=== PATIENT | male | born 1940 | race Caucasian/White ===

== ENCOUNTER 2017-10-31 06:54 | Day surgery (SDC) | payer OTHER, BC ==
[2017-10-31 07:54] VITALS: BP 109/60; PULSE 94; TEMP 97.8
[2017-10-31 08:06] VITALS: BMI 38.4
--- NOTE | 2017-10-31 08:47 | PN ---
Progress Note (short form) - Note Progress Note: Zeferino Lawrence arrived for colonoscopy for polyp surveillance. He had a queasy stomach and nausea that he attributed to the prep. He denies chest pain or dyspnea. He was found to be in new onset atrial fibrillation at 90bpm. PE BP P irregular at 90 bpm,, BP 133/82 Anicteric. Alert Lungs: clear Cor irregularly irregular, Nl S1, S2 Abd: BS normoactive, nontende Impression: New onset atrial fibrillation Plan: Colonoscopy is cancelled Transfer to ER - discussed with Dr Guero Moon was notified and saw the patient and contacted Dr Ky Juarez
--- NOTE | 2017-10-31 13:13 | EKG ---
Test Reason : Blood Pressure : / mmHG Vent. Rate : 089 BPM Atrial Rate : 092 BPM P-R Int : 000 ms QRS Dur : 094 ms QT Int : 400 ms P-R-T Axes : 000 129 -27 degrees QTc Int : 486 ms ATRIAL FIBRILLATION LOW VOLTAGE QRS LEFT POSTERIOR FASCICULAR BLOCK INFERIOR INFARCT (CITED ON OR BEFORE 02-SEP-2013) ABNORMAL ECG WHEN COMPARED WITH ECG OF 02-SEP-2013 11:05, ATRIAL FIBRILLATION HAS REPLACED SINUS RHYTHM VENT. RATE HAS INCREASED BY 31 BPM LEFT POSTERIOR FASCICULAR BLOCK IS NOW PRESENT Confirmed by MCKENNA CELESTIN MD ([id number]) on 10/31/2017 1:12:53 PM Referred By: MARK DEVINE Confirmed By:MCKENNA CELESTIN MD
== END 2017-10-31 08:30 | disposition home or self-care (01) ==
LOC: JASU-ENDO 06:54
PROVIDERS: ATTEND Internal Medicine Gastroenterology
PROC: 0DJD8ZZ Inspection of Lower Intestinal Tract, Via Natural or Artificial Opening Endoscopic (ICD-10-PCS; principal; 2017-10-31)
DX: Z53.8 Procedure and treatment not carried out for other reasons (principal)
CPT/HCPCS: 93005; 93010

== ENCOUNTER 2017-10-31 09:06 | Emergency (ER) | payer OTHER, BC ==
[2017-10-31 09:16] VITALS: TEMP 98; BMI 37.5
--- NOTE | 2017-10-31 09:25 | PDOC ---
History of Present Illness <Guero Reyna - Last Filed: 10/31/17 12:04> - General History Source: Patient Exam Limitations: No Limitations <Sheldon Devi - Last Filed: 10/31/17 12:13> - General Chief Complaint: Weakness Stated Complaint: EKG CHANGES Time Seen by Provider: 10/31/17 09:24 - History of Present Illness Initial Comments: 10/31/17 10:09 The patient is a 77 year old male, with a significant past medical history of hypertension, hypercholesterolemia, and enlarged prostate, who presents to the emergency department for evaluation of an irregular heartbeat. Patient reports he was being seen earlier this morning here at [facility] for a colonoscopy when the doctor advised he had an irregular heartbeat. The patient reports nausea without vomiting and lightheadedness following bowel prep for the colonoscopy. Patient denies chest pain, chest discomfort, palpitations or shortness of breath. Patient denies recent swelling or calf tenderness. Patient denies recent fever, chills, headache or blurry vision. Allergies: NKA Primary Care Physician: Dr. Moon Paper Making Machine Operator: Dr. Juarez (Sheldon Devi) Past History - Past Medical History Cardiac Disorders: Yes (cad;) COPD: No GI Disorders: Yes (GERD) Disorders: Yes (BPH) HTN: Yes Hypercholesterolemia: Yes - Surgical History Orthopedic Surgery: Yes (carpal tunnel rotator cuff) - Suicide/Smoking/Psychosocial Hx Smoking History: Never smoked Have you smoked in the past 12 months: No Hx Alcohol Use: Yes (occas) Drug/Substance Use Hx: No Substance Use Type: Alcohol <Guero Reyna - Last Filed: 10/31/17 12:04> <Sheldon Devi - Last Filed: 10/31/17 12:13> - Past Medical History Allergies/Adverse Reactions: Allergies Allergy/AdvReac Type Severity Reaction Status Date / Time No Known Drug Allergies Allergy Unknown Verified 10/31/17 09:14 Home Medications: Ambulatory Orders Allopurinol [Zyloprim -] 100 mg PO DAILY #0 tablet 09/03/13 Atorvastatin Ca [Lipitor] 40 mg PO HS #0 tablet 09/03/13 Dutasteride [Avodart] 0.5 mg PO HS #0 cap 09/03/13 Metoprolol Succinate [Toprol XL -] 25 mg PO DAILY #0 tab.sr.24h 09/03/13 Olmesartan Medoxomil [Benicar -] 20 mg PO HS #0 tablet 09/03/13 Amlodipine Besylate [Norvasc -] 5 mg PO DAILY 07/16/15 Aspirin Coated [Ecotrin -] 81 mg PO DAILY 07/16/15 Cholecalciferol (Vitamin D3) [Vitamin D3] 2,000 unit PO DAILY 07/16/15 Naproxen [Naprosyn -] 250 mg PO PRN PRN 07/16/15 [place]-3 Acid Ethyl Esters [Lovaza -] 1,000 mg PO DAILY 07/16/15 Ranitidine [Zantac -] 150 mg PO DAILY 07/16/15 Zolpidem Tartrate [Ambien] 5 mg PO PRN PRN 07/16/15 Apixaban [Eliquis -] 5 mg PO BID #30 tablet 10/31/17 Review of Systems <Guero Reyna - Last Filed: 10/31/17 12:04> <Sheldon Devi - Last Filed: 10/31/17 12:13> - Review of Systems Comments:: 10/31/17 10:09 CONSTITUTIONAL: No fever, no chills EYES: No visual changes ENT: No ear pain, no sore throat CARDIOVASCULAR: No chest pain, no palpitations RESPIRATORY: No cough, no SOB GI: +Nausea. No abdominal pain, no vomiting, no constipation, no diarrhea GENITOURINARY: No dysuria, no frequency, no hematuria MUSKULOSKELETAL: No backpain, no joint pain, no myalgias SKIN: No rash NEURO: No headache (Sheldon Devi) *Physical Exam <Guero Reyna - Last Filed: 10/31/17 12:04> <Sheldon Devi - Last Filed: 10/31/17 12:13> - Vital Signs Last Vital Signs Temp Pulse Resp BP Pulse Ox 98 F 79 20 102/72 96 10/31/17 09:14 10/31/17 11:33 10/31/17 10:10 10/31/17 11:33 10/31/17 10:10 - Physical Exam Comments: 10/31/17 10:10 CONSTITUTIONAL: Well-appearing; well-nourished; in no apparent distress HEAD: Normocephalic; atraumatic EYES: PERRL; EOM intact ENMT: External appears normal; normal oropharynx NECK: Supple; non-tender; no cervical lymphadenopathy CARD: +Irregularly irregular. No murmurs, rubs, or gallops RESP: Normal chest excursion with respiration; breath sounds clear and equal bilaterally; no wheezes, rhonchi, or rales ABD: Soft, non-distended; non-tender; no palpable organomegaly, no palpable hernias EXT: Normal ROM in all four extremities; non-tender to palpation; distal pulses intact SKIN: Warm, dry, no rash NEURO: No focal neurological deficiencies. (Sheldon Devi) ED Treatment Course - LABORATORY CBC & Chemistry Diagram: 10/31/17 10:00 10/31/17 10:00 <Guero Reyna - Last Filed: 10/31/17 12:04> - LABORATORY CBC & Chemistry Diagram: 10/31/17 10:00 10/31/17 10:00 <Sheldon Devi - Last Filed: 10/31/17 12:13> - ADDITIONAL ORDERS Additional order review: Laboratory Results 10/31/17 10/31/17 10:00 10:00 PT with INR 11.30 INR 1.00 Sodium 141 Potassium 3.9 Chloride 104 Carbon Dioxide 23 Anion Gap 14 BUN 18 Creatinine 1.3 D Creat Clearance w eGFR 53.53 Random Glucose 137 H D Calcium 9.6 Magnesium 2.0 D Total Bilirubin 1.2 H AST 18 D ALT 30 D Alkaline Phosphatase 72 Creatine Kinase 43 Troponin I 0.10 H D Total Protein 6.6 Albumin 3.8 10/31/17 10:00 RBC 5.16 MCV 93.9 MCHC 32.8 RDW 14.2 MPV 7.9 Neutrophils % 74.7 Lymphocytes % 16.8 D Monocytes % 7.0 Eosinophils % 0.8 Basophils % 0.7 - RADIOLOGY Radiograph Interpretation: 10/31/17 10:15 EXAM#: TYPE/EXAM: RESULT: [id number] RAD/CHEST X-RAY PORTABLE* Atrial fibrillation. Single AP portable chest x-ray. Shallow inspiration. The heart is borderline enlarged. Uncoiled thoracic aorta. The lungs are well aerated. No evidence of CHF, pneumonia, atelectasis. No large pleural effusion, or pneumothorax is seen. Intact visualized osseous structures. Impression. No evidence of active pulmonary disease. Reported By: Werner Burnett MD (Sheldon Devi) Medical Decision Making <Guero Reyna - Last Filed: 10/31/17 12:04> <Sheldon Devi - Last Filed: 10/31/17 12:13> - Medical Decision Making 10/31/17 12:04 Patient is a well-appearing 77-year-old male with multiple comorbidities who presented to the ER from the endoscopy suite for new onset atrial fibrillation with controlled ventricular rate after undergoing bowel prep one day previously. In the ER, patient is awake and alert, initially hypotensive, and clinically orthostatic, likely related to the hypokalemia and fluid shifts induced by the bowel prep. CBC reveals minimal leukocytosis of 14 with a normal differential, CMP reveals no evidence of significant electrolyte abnormalities. EKG reveals mild rightward axis shift but no evidence of acute ischemia. Patient was seen and evaluated by Dr. justin of cardiology. Patient's chads 2 vascular score is noted to be 3 which requires oral anticoagulation. While in the ED, patient is received 1 L of normal saline with resolution of his hypotension and resolution of clinical orthostatics. Patient is able to ambulate without difficulty and tolerates by mouth. Will discharge with all requests with cardiology follow-up in 48 hours. (Guero Reyna) 10/31/17 10:[address] Dr[address] Juarez at 9:57 am. Engineering Illustrator notified that Dr. Justin is covering and currently in [facility]. Case discussed with Dr. Justin. Page sent to Dr. Moon at 11:19. Page returned immediately. (Sheldon Devi) *DC/Admit/Observation/Transfer <Guero Reyna - Last Filed: 10/31/17 12:04> <Sheldon Devi - Last Filed: 10/31/17 12:13> Diagnosis at time of Disposition: Atrial fibrillation Qualifiers: Atrial fibrillation type: paroxysmal Qualified Code(s): I48.0 - Paroxysmal atrial fibrillation - Discharge Dispostion Disposition: HOME Condition at time of disposition: Stable - Prescriptions Prescriptions: Apixaban [Eliquis -] 5 mg PO BID #30 tablet - Referrals Referrals: Waldemar Moon MD [Primary Care Provider] - Meg Juarez MD [Staff Physician] - - Patient Instructions Printed Discharge Instructions: Atrial Fibrillation - Attestations Scribe Attestion: 10/31/17 10:11 Documentation prepared by Sheldon Devi, acting as medical research associate for Guero Reyna MD. (Sheldon Devi) Physician Attestion: 10/31/17 12:04 The documentation was prepared by the scribe under my direct supervision. I have reviewed the documentation which correctly represents the findings, medical decision-making and critical action taken by me. (Guero Reyna)
[2017-10-31 10:16] LABS: BASO % 0.7 % (0-2.0); EOS % 0.8 % (0-4.5); HEMATOCRIT 48.5 % (35.4-49); HEMOGLOBIN 15.9 GM/dL (11.7-16.9); LYMPH % 16.8 % (8-40); MCH 30.7 pg (25.7-33.7); MCHC 32.8 g/dl (32.0-35.9); MEAN CELL VOLUME 93.9 fl (80-96); MEAN PLT VOLUME 7.9 fl (7.5-11.1); NEUT % 74.7 % (42.8-82.8); PLATELET COUNT 235 K/MM3 (134-434); RBC 5.16 M/mm3 (4.00-5.60); RDW 14.2 % (11.9-15.9); WHITE BLOOD COUNT 14.4 K/mm3 (4.0-10.0)
[2017-10-31 10:48] LABS: ALBUMIN 3.8 g/dl (3.4-5.0); ANION GAP 14 (8-16); BILIRUBIN,TOTAL 1.2 mg/dL (0.2-1.0); BLOOD UREA NITROGEN 18 mg/dL (7-18); CALCIUM 9.6 mg/dL (8.5-10.1); CHLORIDE 104 mmol/L (98-107); CO2 23 mmol/L (21-32); CREATININE 1.3 mg/dL (0.7-1.3); GLUCOSE,RANDOM 137 mg/dL (74-106); POTASSIUM 3.9 mmol/L (3.5-5.1); SGOT/AST 18 U/L (15-37); SGPT/ALT 30 U/L (12-78); SODIUM 141 mmol/L (136-145); TOT PROT 6.6 g/dl (6.4-8.2)
[2017-10-31 10:51] LABS: ALK PHOS 72 U/L (45-117)
[2017-10-31 10:53] LABS: PROTHROMBIN TIME (PATIENT) 11.3 SEC (9.98-11.88)
--- NOTE | 2017-10-31 10:53 | CON.CARD ---
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 Patient reports he was being seen earlier this morning here at [facility] for a colonoscopy when he was found to be in newly diagnosed atrial fibrillation. The patient reports nausea without vomiting and lightheadedness following bowel prep for the colonoscopy with mild hypotension amenable to IVF. Patient denies chest pain, palpitations, shortness of breath, syncope, orthopnea , PND or LE edema. Allergies: NKA Primary Care Physician: Dr. Moon Pipe And Test Supervisor: Dr. Juarez - History Source History Provided By: Patient Limitations to Obtaining History: No Limitations - Alcohol/Substance Use Hx Alcohol Use: Yes (occas) - Smoking History Smoking history: Never smoked Have you smoked in the past 12 months: No Home Medications - Allergies Allergies/Adverse Reactions: Allergies Allergy/AdvReac Type Severity Reaction Status Date / Time No Known Drug Allergies Allergy Unknown Verified 10/31/17 09:14 - Home Medications Home Medications: Ambulatory Orders Allopurinol [Zyloprim -] 100 mg PO DAILY #0 tablet 09/03/13 Atorvastatin Ca [Lipitor] 40 mg PO HS #0 tablet 09/03/13 Dutasteride [Avodart] 0.5 mg PO HS #0 cap 09/03/13 Metoprolol Succinate [Toprol XL -] 25 mg PO DAILY #0 tab.sr.24h 09/03/13 Olmesartan Medoxomil [Benicar -] 20 mg PO HS #0 tablet 09/03/13 Amlodipine Besylate [Norvasc -] 5 mg PO DAILY 07/16/15 Aspirin Coated [Ecotrin -] 81 mg PO DAILY 07/16/15 Cholecalciferol (Vitamin D3) [Vitamin D3] 2,000 unit PO DAILY 07/16/15 Naproxen [Naprosyn -] 250 mg PO PRN PRN 07/16/15 [place]-3 Acid Ethyl Esters [Lovaza -] 1,000 mg PO DAILY 09/18/15 Ranitidine [Zantac -] 150 mg PO DAILY 07/16/15 Zolpidem Tartrate [Ambien] 5 mg PO PRN PRN 07/16/15 Review of Systems - Review of Systems Neurological: reports: Dizziness - Risk Factors Known Risk Factors: Yes: Age, Hypercholesterolemia, Hypertension Vital Signs: Vital Signs Temperature 98 F 10/31/17 09:14 Pulse Rate 84 10/31/17 10:10 Respiratory Rate 20 10/31/17 10:10 Blood Pressure 93/47 10/31/17 10:10 O2 Sat by Pulse Oximetry (%) 96 10/31/17 10:10 Constitutional: Yes: No Distress, Calm Neck: Yes: Supple Respiratory: Yes: Regular, Diminished Gastrointestinal: Yes: Normal Bowel Sounds, Soft, Abdomen, Obese Cardiovascular: Yes: Pulse Irregular JVD: No Carotid Bruit: No Heart Sounds: Yes: S1, S2 Edema: No - Other Data Labs, Other Data: CBC, BMP 10/31/17 10:00 Afib @ 89 low volts, compared with previous 03/15/2017, now in afib Imaging - Results Chest X-ray: Report Reviewed (10/31/17 10:15 EXAM#: TYPE/EXAM: RESULT: [id number] RAD/CHEST X-RAY PORTABLE* Atrial fibrillation. Single AP portable chest x-ray. Shallow inspiration. The heart is borderline enlarged. Uncoiled thoracic aorta. The lungs are well aerated. No evidence of CHF, pneumonia, atelectasis. No large pleural effusion, or pneumothorax is seen. Intact visualized osseous structures. Impression. No evidence of active pulmonary disease. Reported By: Werner Burnett MD) Problem List - Problems (1) Atrial fibrillation Code(s): I48.91 - UNSPECIFIED ATRIAL FIBRILLATION Qualifiers: Atrial fibrillation type: paroxysmal Qualified Code(s): I48.0 - Paroxysmal atrial fibrillation (2) Hypertensive cardiomyopathy Code(s): I11.9 - HYPERTENSIVE HEART DISEASE WITHOUT HEART FAILURE; I43 - CARDIOMYOPATHY IN DISEASES CLASSIFIED ELSEWHERE Qualifiers: Heart failure presence: without heart failure Qualified Code(s): I11.9 - Hypertensive heart disease without heart failure; I43 - Cardiomyopathy in diseases classified elsewhere; I43 - Cardiomyopathy in diseases classified elsewhere; I43 - Cardiomyopathy in diseases classified elsewhere; I43 - Cardiomyopathy in diseases classified elsewhere (3) Hyperlipidemia Code(s): E78.5 - HYPERLIPIDEMIA, UNSPECIFIED Qualifiers: Hyperlipidemia type: pure hypercholesterolemia Qualified Code(s): E78.00 - Pure hypercholesterolemia, unspecified; E78.0 - Pure hypercholesterolemia (4) Coronary artery disease Code(s): I25.10 - ATHSCL HEART DISEASE OF [place] CORONARY ARTERY W/O ANG PCTRS Qualifiers: Coronary Disease-Associated Artery/Lesion type: [place] artery [place] vs. transplanted heart: [place] heart Associated angina: without angina Qualified Code(s): I25.10 - Atherosclerotic heart disease of [place] coronary artery without angina pectoris (5) Demand ischemia Code(s): I24.8 - OTHER FORMS OF ACUTE ISCHEMIC HEART DISEASE (6) Diastolic dysfunction Code(s): I51.9 - HEART DISEASE, UNSPECIFIED (7) Hyperuricemia Code(s): E79.0 - HYPERURICEMIA W/O SIGNS OF INFLAM ARTHRIT AND TOPHACEOUS DIS Assessment/Plan 08/25/2016 Echo: 08/25/2016 cLVH with preserved LV systolic function, mild LAE 4.1 cm 1. Newly-diagnosed rate-controlled atrial fibrillation [id number], likely vagally-mediated post colonoscopy prep 2. 1 vessel CAD, demand ischemia 3. LV diastolic dysfunction with h/o failure 4. HTN/HCVD 5. Hyperlipidemia 6. 4.0 cm TAA as of 09/12/2016 7. OSAS suspect 8. Hyperuricemia P:1. Check TSH, repeat echo as outpatient 2. Change ASA 81 qd to Eliquis 5 bid given elevated risk score 3. Continue Lipitor 40 qhs, Toprol XL 25 qd, Benicar 20 qhs, Norvasc 5 qd, Lovaza 1 gm bid 4. Patient to f/u with Dr. Juarez 11/02/2017 at 12:20 PM 5. PSG as outpatient to r/o OSAS 6. Thank you for consultative opportunity
[2017-10-31] MEDS ORDERED: APIXABAN 5 MG TABLET PO SCH (11:30)
[2017-10-31 11:33] VITALS: BP 102/72; PULSE 79
== END 2017-10-31 12:13 | disposition home or self-care (01) ==
LOC: JER 09:06
DX: I48.0 Paroxysmal atrial fibrillation (principal); I10 Essential (primary) hypertension; E78.00 Pure hypercholesterolemia, unspecified; N40.0 Benign prostatic hyperplasia without lower urinary tract symptoms; I25.10 Atherosclerotic heart disease of native coronary artery without angina pectoris
CPT/HCPCS: 36415; 71045-TC-FY; 80053; 82550; 83735; 84484; 85025; 85610; 93005; 93010; 99285-25

== ENCOUNTER 2018-03-17 22:18 | Emergency (ER) | payer OTHER, BC ==
[2018-03-17 22:27] VITALS: TEMP 98.1; BMI 36.0
[2018-03-17 22:33] VITALS: BP 150/83; PULSE 95
[2018-03-17] MEDS ORDERED: LIDOCAINE HCL 2% (50ML VIAL) INF ONE (22:35)
[2018-03-17] MEDS ORDERED: LIDOCAINE HCL 2% (20ML MULTI-DOSE VIAL) NR ONE (22:36)
[2018-03-17] MEDS ORDERED: ACETAMINOPHEN 325 MG TABLET (FP) PO ONE (22:37)
[2018-03-17] MEDS ORDERED: ACETAMINOPHEN 325 MG TABLET (FP) ONE (22:38)
[2018-03-17] MEDS ORDERED: AMPICILLIN NA/SULBACTAM NA 1.5 GM in SODIUM CHLORIDE 100 ML IVPB ONE (22:48)
--- NOTE | 2018-03-17 22:51 | PDOC ---
History of Present Illness - General Chief Complaint: Pain, Acute Stated Complaint: SWELLING PAIN TO RIGHT RING FINGER Time Seen by Provider: 03/17/18 22:25 History Source: Patient, Significant Other Exam Limitations: No Limitations - History of Present Illness Timing/Duration: 1 week Severity: moderate Modifying Factors: worse with: cold therapy, eating, immobilization, medication , movement, rest, other Associated Symptoms: denies: denies symptoms, chest pain, cough, diaphoresis, fever/chills, headaches, loss of appetite, malaise, nausea/vomiting, rash, seizure, shortness of breath, syncope, weakness, other Past History - Travel Traveled outside of the country in the last 30 days: No Close contact w/someone who was outside of country & ill: No - Past Medical History Allergies/Adverse Reactions: Allergies Allergy/AdvReac Type Severity Reaction Status Date / Time No Known Drug Allergies Allergy Unknown Verified 03/17/18 22:19 Home Medications: Ambulatory Orders Allopurinol [Zyloprim -] 100 mg PO DAILY #0 tablet 09/03/13 Atorvastatin Ca [Lipitor] 40 mg PO HS #0 tablet 09/03/13 Dutasteride [Avodart] 0.5 mg PO HS #0 cap 09/03/13 Metoprolol Succinate [Toprol XL -] 25 mg PO DAILY #0 tab.sr.24h 09/03/13 Olmesartan Medoxomil [Benicar -] 20 mg PO HS #0 tablet 09/03/13 Amlodipine Besylate [Norvasc -] 5 mg PO DAILY 07/16/15 Aspirin Coated [Ecotrin -] 81 mg PO DAILY 07/16/15 Cholecalciferol (Vitamin D3) [Vitamin D3] 2,000 unit PO DAILY 07/16/15 Naproxen [Naprosyn -] 250 mg PO PRN PRN 07/16/15 [place]-3 Acid Ethyl Esters [Lovaza -] 1,000 mg PO DAILY 07/16/15 Ranitidine [Zantac -] 150 mg PO DAILY 07/16/15 Zolpidem Tartrate [Ambien] 5 mg PO PRN PRN 07/16/15 Apixaban [Eliquis -] 5 mg PO BID #30 tablet 10/31/17 Amoxicillin/Potassium Clav [Augmentin 875-125 Tablet] 1 each PO BID #14 tablet 03/17/18 Cardiac Disorders: Yes (cad;) COPD: No GI Disorders: Yes (GERD) Disorders: Yes (BPH) HTN: Yes Hypercholesterolemia: Yes - Surgical History Orthopedic Surgery: Yes (carpal tunnel rotator cuff) - Suicide/Smoking/Psychosocial Hx Smoking History: Never smoked Have you smoked in the past 12 months: No Information on smoking cessation initiated: No Hx Alcohol Use: No Drug/Substance Use Hx: No Substance Use Type: Alcohol Review of Systems - Review of Systems Constitutional: No: Symptoms Reported, See HPI, Chills, Diaphoresis, Fever, Loss of Appetite, Malaise, Night Sweats, Weakness, Weight Stable, Unintentional Wgt. Loss, Unexplained wgt Loss, Other HEENTM: No: Symptoms Reported, See HPI, Eye Pain, Blurred Vision, Tearing, Recent change in vision, Double Vision, Cataracts, Ear Pain, Ocular Prothesis, Ear Discharge, Nose Pain, Nose Congestion, Tinnitus, Nose Bleeding, Hearing Loss , Throat Pain, Throat Swelling, Mouth Pain, Dental Problems, Difficulty Swallowing, Mouth Swelling, Other Respiratory: No: Symptoms reported, See HPI, Cough, Orthopnea, Shortness of Breath, SOB with Exertion, SOB at Rest, Stridor, Wheezing, Productive cough, Hemoptysis, Other Cardiac (ROS): No: Symptoms Reported, See HPI, Chest Pain, Edema, Irregular Heart Rate, Lightheadedness, Palpitations, Syncope, Chest Tightness, Other ABD/GI: No: Symptoms Reported, See HPI, Abdominal Distended, Abd. Pain w/ defecation, Blood Streaked Bowels, Constipated, Diarrhea, Difficulty Swallowing , Nausea, Poor Appetite, Poor Fluid Intake, Rectal Bleeding, Vomiting, Indigestion, Abdominal cramping, Tarry Stools, Other : No: Symptoms Reported, See HPI, Burning, Dysuria, Discharge, Frequency, Flank Pain, Hematuria, Incontinence, Pain, Urgency, Testicular Mass, Testicular Swelling, Lesions, Testicular Pain, Other Musculoskeletal: No: Symptoms Reported, See HPI, Back Pain, Gout, Joint Pain, Joint Swelling, Muscle Pain, Muscle Weakness, Neck Pain, Joint Stiffness, Other Integumentary: No: Symptoms Reported, See HPI, Bruising, Change in Color, Change in Hair/Nails, Dryness, Erythema, Flushing, Lesions, Lumps, Pallor, Pruritus, Rash, Sweating, Other Neurological: No: Symptoms reported, See HPI, Headache, Numbness, Paresthesia, Pre-Existing Deficit, Seizure, Tingling, Tremors, Weakness, Unsteady Gait, Ataxia, Dizziness, Other Psychiatric: No: Anxiety, Depression, Frequent Crying, Stressors, Sleep Pattern Change, Emotional Problems, Mood Swings, Change in Appetite, Other *Physical Exam - Vital Signs Last Vital Signs Temp Pulse Resp BP Pulse Ox 98.1 F 95 H 16 150/83 99 03/17/18 22:22 03/17/18 22:31 03/17/18 22:31 03/17/18 22:31 03/17/18 22:31 - Physical Exam General Appearance: Yes: Nourished, Appropriately Dressed HEENT: positive: EOMI, RHONDA, Normal ENT Inspection Neck: positive: Trachea midline, Normal Thyroid Respiratory/Chest: positive: Chest Tender, Lungs Clear, Normal Breath Sounds Cardiovascular: positive: Regular Rhythm, Regular Rate, S1, S2 Gastrointestinal/Abdominal: positive: Normal Bowel Sounds, Flat Musculoskeletal: positive: Normal Inspection Extremity: positive: Normal Capillary Refill, Normal Inspection, Inflammation, Other (paronychia on the right 4th finger) Integumentary: positive: Normal Color, Dry, Warm Neurologic: positive: Fully Oriented, Alert, Normal Mood/Affect Procedures - Incision and Drainage I&D Site: Right: Other (finger paronychia) Betadine cleansed: Yes Anesthesia: 2% Lidocaine Volume(ml): 3 Blade Size: zev scissor from the sterile suture kit Plain Packing: No Complications: none Dressing: Yes *DC/Admit/Observation/Transfer Diagnosis at time of Disposition: Paronychia of finger of right hand - Discharge Dispostion Disposition: HOME Condition at time of disposition: Improved Decision to Admit order: No - Prescriptions Prescriptions: Amoxicillin/Potassium Clav [Augmentin 875-125 Tablet] 1 each PO BID #14 tablet - Referrals Referrals: Waldemar Moon MD [Staff Physician] - - Patient Instructions Printed Discharge Instructions: DI for Paronychia, DI for Wound Infection - Post Discharge Activity
[2018-03-17] MEDS ORDERED: AMPICILLIN NA/SULBACTAM NA 1.5 GM VIAL ONE (22:56)
[2018-03-17] MEDS ORDERED: BACITRACIN 15 GM TUBE TOPICAL OINTMENT TP ONE (23:28)
== END 2018-03-18 00:05 | disposition home or self-care (01) ==
LOC: FER 22:18
PROC: 0H9FXZZ Drainage of Right Hand Skin, External Approach (ICD-10-PCS; principal; 2018-03-17)
PROC: 3E03329 Introduction of Other Anti-infective into Peripheral Vein, Percutaneous Approach (ICD-10-PCS; 2018-03-17)
DX: L03.011 Cellulitis of right finger (principal); K21.9 Gastro-esophageal reflux disease without esophagitis; N40.0 Benign prostatic hyperplasia without lower urinary tract symptoms; I10 Essential (primary) hypertension; E78.00 Pure hypercholesterolemia, unspecified
CPT/HCPCS: 87070; 87076; 87186; 87205; 99281-25

== ENCOUNTER 2019-07-05 13:40 | Emergency (ER) | payer OTHER, BC ==
[2019-07-05 14:11] VITALS: BP 115/70; PULSE 56; TEMP 98.1; BMI 35.9
[2019-07-05 15:42] LABS: BASO % 1.1 % (0-2.0); EOS % 4.1 % (0-4.5); HEMATOCRIT 48.3 % (35.4-49); HEMOGLOBIN 16.1 GM/dl (11.7-16.9); LYMPH % 19.7 % (8-40); MCH 32.5 pg (25.7-33.7); MCHC 33.3 g/dl (32.0-35.9); MEAN CELL VOLUME 97.7 fl (80-96); MEAN PLT VOLUME 8.8 fl (7.5-11.1); MONO % 6.5 % (3.8-10.2); NEUT % 68.6 % (42.8-82.8); PLATELET COUNT 150 K/MM3 (134-434); RBC 4.94 M/mm3 (4.00-5.60); RDW 14.5 % (11.9-15.9); WHITE BLOOD COUNT 8.4 K/mm3 (4.0-10.8)
--- NOTE | 2019-07-05 15:54 | PDOC ---
Documentation entered by Nancy Mike SCRIBE, acting as scribe for Janeth Calderon MD. Janeth Calderon MD: This documentation has been prepared by the arianeibeRashid Lincy, SCRIBE, under my direction and personally reviewed by me in its entirety. I confirm that the documentation accurately reflects all work, treatment, procedures, and medical decision making performed by me. History of Present Illness - General Chief Complaint: Eye Problem Stated Complaint: RIGHT EYELID BRUISE History Source: Patient Exam Limitations: No Limitations - History of Present Illness Initial Comments: 07/05/19 15:00 The patient is a 78-year-old male with a past medical history significant for HTN, CAD, and HLD who presents to the emergency department with right lower eyelid bruising since this morning. The patient denies noticing the bruising when she woke up today. The patient reports after showering, he was shaving his face when he noticed bruising to the right lower eyelid. The patient denies pain but reports slight pressure to the area. The patient reports daily use of Xarelto. Denies trauma, injury, or falls. Denies numbness, tingling, facial drooping. Allergies: NKDA PCP: Dr. Moon Cardiology: Dr. Juarez Past History - Past Medical History Allergies/Adverse Reactions: Allergies Allergy/AdvReac Type Severity Reaction Status Date / Time No Known Drug Allergies Allergy Unknown Verified 03/17/18 22:19 Home Medications: Ambulatory Orders Allopurinol [Zyloprim -] 100 mg PO DAILY #0 tablet 09/03/13 Atorvastatin Ca [Lipitor] 40 mg PO HS #0 tablet 09/03/13 Dutasteride [Avodart] 0.5 mg PO HS #0 cap 09/03/13 Cholecalciferol (Vitamin D3) [Vitamin D3] 2,000 unit PO DAILY 07/16/15 Naproxen [Naprosyn -] 250 mg PO PRN PRN 07/16/15 Tully-3 Acid Ethyl Esters [Lovaza -] 1,000 mg PO HS 07/16/15 Ranitidine [Zantac -] 150 mg PO DAILY 07/16/15 Zolpidem Tartrate [Ambien] 5 mg PO PRN PRN 07/16/15 Empagliflozin [Jardiance] 25 mg PO DAILY 07/05/19 Losartan Potassium [Cozaar] 25 mg PO DAILY 07/05/19 Nebivolol HCl [Bystolic] 10 mg PO HS 07/05/19 Pantoprazole Sodium [Protonix] 40 mg PO HS 07/05/19 Rivaroxaban [Xarelto -] 20 mg PO HS 07/05/19 Cardiac Disorders: Yes (CAD, A-FIB) COPD: No Diabetes: Yes GI Disorders: Yes (GERD) Disorders: Yes (BPH) HTN: Yes Hypercholesterolemia: Yes - Surgical History Orthopedic Surgery: Yes (carpal tunnel rotator cuff) - Suicide/Smoking/Psychosocial Hx Smoking History: Never smoked Have you smoked in the past 12 months: No Hx Alcohol Use: No Drug/Substance Use Hx: No Substance Use Type: Alcohol Review of Systems - Review of Systems Able to Perform ROS?: Yes Comments:: 07/05/19 15:03 GENERAL/CONSTITUTIONAL: No fever or chills. No weakness. HEAD, EYES, EARS, NOSE AND THROAT: +right eyelid bruising. No change in vision. No ear pain or discharge. No sore throat. CARDIOVASCULAR: No chest pain or shortness of breath. RESPIRATORY: No cough, wheezing, or hemoptysis SKIN: No rash NEUROLOGIC: Denies facial drooping, numbness or tingling. No headache, vertigo, loss of consciousness, or change in strength/sensation. HEMATOLOGIC/LYMPHATIC: No anemia, easy bleeding, or history of blood clots. *Physical Exam - Vital Signs Last Vital Signs Temp Pulse Resp BP Pulse Ox 98.1 F 56 L 16 115/70 97 07/05/19 13:49 07/05/19 13:49 07/05/19 13:49 07/05/19 13:49 07/05/19 13:49 - Physical Exam Comments: 07/05/19 15:33 GENERAL: Awake, alert, and fully oriented, in no acute distress HEAD: No signs of trauma EYES: +small ecchymosis under the eyes, no deformities. PERRLA, EOMI, sclera anicteric, conjunctiva clear NECK: Normal ROM, supple, no lymphadenopathy, JVD, or masses LUNGS: Breath sounds equal, clear to auscultation bilaterally. No wheezes, and no crackles HEART: Regular rate and rhythm, normal S1 and S2, no murmurs, rubs or gallops NEUROLOGICAL: Cranial nerves II through XII grossly intact. Normal speech, normal gait ED Treatment Course - LABORATORY CBC & Chemistry Diagram: 07/05/19 15:20 - ADDITIONAL ORDERS Additional order review: Laboratory Results 07/05/19 15:20 PTT (Actin FS) Cancelled 07/05/19 15:20 RBC 4.94 MCV 97.7 H MCHC 33.3 RDW 14.5 MPV 8.8 Neutrophils % 68.6 Lymphocytes % 19.7 Monocytes % 6.5 Eosinophils % 4.1 Basophils % 1.1 *DC/Admit/Observation/Transfer Diagnosis at time of Disposition: Contusion of face Qualifiers: Encounter type: initial encounter Qualified Code(s): S00.83XA - Contusion of other part of head, initial encounter - Discharge Dispostion Disposition: HOME Condition at time of disposition: Good Decision to Admit order: No - Referrals Referrals: Waldemar Moon MD [Primary Care Provider] - - Patient Instructions Printed Discharge Instructions: DI for Eye Contusion Additional Instructions: you came to the ED because you had a contusion on your eye. This was most likely caused by the xarelto. You should return to the Ed for worsening swelling, or for bleeding from your nose, rectal bleeding, or bleeding in the urine. Also return for severe eye swelling or for changes in your vision. Continue to take the xarelto. Make sure you follow up with your doctor. - Post Discharge Activity
== END 2019-07-05 16:05 | disposition home or self-care (01) ==
LOC: FER 13:40
DX: S00.83XA Contusion of other part of head, initial encounter (principal); X58.XXXA Exposure to other specified factors, initial encounter; Y93.89 Activity, other specified; Y92.89 Other specified places as the place of occurrence of the external cause; I10 Essential (primary) hypertension; I48.91 Unspecified atrial fibrillation; I25.10 Atherosclerotic heart disease of native coronary artery without angina pectoris; K21.9 Gastro-esophageal reflux disease without esophagitis; N40.0 Benign prostatic hyperplasia without lower urinary tract symptoms
CPT/HCPCS: 36415; 85025; 99282-25

== ENCOUNTER 2019-08-15 07:59 | Day surgery (SDC) | payer OTHER, BC ==
[2019-08-14 11:38] VITALS: BMI 35.9
[2019-08-15 09:55] VITALS: TEMP 97.5
[2019-08-15 11:09] VITALS: BP 104/70; PULSE 64
--- NOTE | 2019-08-18 14:03 | PATH ---
Surgical Pathology Report Patient Name: LIU STEVEN [facility]. Rec. #: [id number] /Age/Gender: 1940 (Age: 78) / M Account: [id number] Location: [facility]-ENDOSCOPY Taken: 08/15/2019 Received: 08/15/2019 Reported: 08/18/2019 Physicians: Wilver Mehta M.D. Specimen(s) Received RIGHT COLON POLYPS Clinical History Personal history of colon polyp Postoperative diagnosis: Diverticulosis, colon polyps Final Diagnosis COLON POLYPS, RIGHT, BIOPSY: TUBULAR ADENOMA(S). POLYPOID COLONIC MUCOSA WITH PROMINENT LYMPHOID AGGREGATE. Electronically Signed Leana Pro M.D. Gross Description Received in formalin labeled "biopsy right colon polyps," is a 0.7 x 0.7 x 0.1 cm aggregate of judge soft tissue fragments. The formalin is filtered and the specimen is entirely submitted in one cassette. DL/08/15/2019 saudi/08/15/2019
== END 2019-08-15 10:55 | disposition home or self-care (01) ==
LOC: JASU-ENDO 07:59
PROVIDERS: ATTEND Internal Medicine Gastroenterology
PROC: 0DBK8ZX Excision of Ascending Colon, Via Natural or Artificial Opening Endoscopic, Diagnostic (ICD-10-PCS; principal; 2019-08-15 09:00)
DX: Z86.010 Personal history of colon polyps (principal); D12.2 Benign neoplasm of ascending colon; K57.30 Diverticulosis of large intestine without perforation or abscess without bleeding
CPT/HCPCS: 88305-TC

== ENCOUNTER 2020-09-14 06:06 | Day surgery (SDC) | payer OTHER, BC ==
[2020-09-07 11:45] VITALS: BMI 34.9
[~2020-09-14 06:06] MED LIST: CEFAZOLIN 2 GM in DEXTROSE 5%-WATER - 50 ML IVPB ONE; CELECOXIB 200 MG CAPSULE PO ONE
[2020-09-14] MEDS ORDERED: TRANEXAMIC ACID 1000 MG/10 ML VIAL IVPUSH ONE (06:35)
[2020-09-14] MEDS ORDERED: BUPIVACAINE HCL/PF 0.5% (5 MG/ML) 30 ML VIAL IJ ONE (06:50)
[2020-09-14] MEDS ORDERED: MIDAZOLAM HCL 2 MG/2 ML SINGLE DOSE VIAL ONE (06:50)
[2020-09-14] MEDS ORDERED: CELECOXIB 200 MG CAPSULE ONE (06:56)
[2020-09-14] MEDS ORDERED: THROMBIN (RECOMBINANT) 5,000 UNIT VIAL TP ONE (07:03)
[2020-09-14] MEDS ORDERED: ceFAZolin SODIUM 1 GM VIAL ONE ×2 (07:03→09:46)
[2020-09-14] MEDS ORDERED: PROPOFOL 20 ML ONE (07:55)
[2020-09-14] MEDS ORDERED: SUCCINYLCHOLINE CHLORIDE 200 MG/10 ML SYRINGE ONE (07:55)
[2020-09-14] MEDS ORDERED: BUPIVACAINE HCL/PF 0.5% (5MG/ML) 10 ML VIAL ONE (07:56)
[2020-09-14] MEDS ORDERED: ONDANSETRON 4 MG/2 ML VIAL IVPUSH PRN (07:57)
[2020-09-14] MEDS ORDERED: MAG HYDROX/AL HYDROX/SIMETH 30 ML UNIT-DOSE CUP PO PRN (07:57)
[2020-09-14] MEDS ORDERED: LACTATED RINGERS SOLUTION 1,000 ML IV SCH (08:00)
[2020-09-14] MEDS ORDERED: ROCURONIUM BROMIDE 50 MG/5 ML SYRINGE ONE (08:35)
[2020-09-14] MEDS ORDERED: EPHEDRINE SULFATE/0.9% NACL/PF 50 MG/10 ML SYRINGE NR ONE (08:42)
[2020-09-14] MEDS ORDERED: NEOSTIGMINE METHYLSULFATE 0.5 MG/ML - 10 ML MDV ONE (09:17)
[2020-09-14] MEDS ORDERED: BUPIVICAINE 0.25%/MORPH PF/KETOROLAC - 51ML DISP.SYRINGE IA ONE ×3 (09:28→09:42)
[2020-09-14] MEDS ORDERED: THROMBIN (BOVINE) 5,000 UNIT VIAL TP ONE (09:29)
[2020-09-14] MEDS ORDERED: GELATIN, ABSORBABLE 100 EACH SPONGE TP ONE (09:30)
[2020-09-14] MEDS ORDERED: TRANEXAMIC ACID 1000 MG/10 ML VIAL ONE ×2 (09:46→09:54)
[2020-09-14] MEDS ORDERED: ONDANSETRON 4 MG/2 ML VIAL ONE (09:46)
[2020-09-14] MEDS ORDERED: DEXAMETHASONE SOD PHOSPHATE 4 MG/1 ML VIAL ONE (09:46)
[2020-09-14] MEDS ORDERED: PATIENT'S OWN MEDICATION (NON-FORMULARY) (Empagliflozin [Jardiance] 25 MG) PO SCH (10:00)
[2020-09-14] MEDS ORDERED: FAMOTIDINE 20 MG TABLET PO SCH (10:00)
[2020-09-14] MEDS ORDERED: oxyCODONE HCL 5 MG TABLET PO PRN (10:39)
[2020-09-14] MEDS: MULTIVITAMINS (DAILY MVI) TABLET (FP) PO SCH (12:41)
[2020-09-14] MEDS: ALLOPURINOL 100 MG TABLET (FP) PO SCH (12:42)
[2020-09-14] MEDS: SENNOSIDES/DOCUSATE COMBO (SENNA PLUS) TABLET (UD) PO SCH ×2 (12:43→21:39)
[2020-09-14] MEDS: PANTOPRAZOLE 40 MG TABLET PO SCH (12:43)
[2020-09-14] MEDS: SPIRONOLACTONE 25 MG TABLET PO SCH (12:43)
[2020-09-14] MEDS: CEFAZOLIN 2 GM/D5W 2 GM/50 ML ML IVPB SCH ×2 (15:16→23:17)
[2020-09-14] MEDS: oxyCODONE HCL 5 MG TABLET PO PRN (15:27)
[2020-09-14] MEDS ORDERED: PT OWN MED DRAWER 7, Y5N ONE (21:24)
[2020-09-14] MEDS ORDERED: ZOLPIDEM TARTRATE 5 MG TABLET PO PRN (22:00)
[2020-09-14] MEDS ORDERED: MONTELUKAST NA 10 MG TABLET PO SCH (22:00)
[2020-09-14] MEDS ORDERED: ATORVASTATIN CA 40 MG TABLET (FP) PO SCH (22:00)
[2020-09-14] MEDS ORDERED: DUTASTERIDE 0.5 MG CAP (FP) PO SCH (22:00)
[2020-09-14] MEDS ORDERED: NEBIVOLOL 10 MG TABLET (FP) PO SCH (22:00)
[2020-09-15] MEDS ORDERED: ASPIRIN 325 MG TABLET PO SCH (08:00)
[2020-09-15 09:22] VITALS: BP 133/67; PULSE 61; TEMP 97.7
[2020-09-15] MEDS: MULTIVITAMINS (DAILY MVI) TABLET (FP) PO SCH (09:22)
[2020-09-15] MEDS: ALLOPURINOL 100 MG TABLET (FP) PO SCH (09:22)
[2020-09-15] MEDS: SPIRONOLACTONE 25 MG TABLET PO SCH (09:22)
[2020-09-15] MEDS: PANTOPRAZOLE 40 MG TABLET PO SCH (09:22)
[2020-09-15] MEDS: SENNOSIDES/DOCUSATE COMBO (SENNA PLUS) TABLET (UD) PO SCH (09:23)
[2020-09-15] MEDS: oxyCODONE HCL 5 MG TABLET PO PRN (09:24)
[2020-09-15] MEDS ORDERED: FAMOTIDINE 20 MG TABLET PO SCH (10:00)
== END 2020-09-15 12:20 | disposition home health service (06) ==
LOC: FASUSAT 06:06 → FM/S 12:17 → FASUSAT 09-15 12:20
PROVIDERS: ATTEND Orthopaedic Surgery
PROC: 8E0YXBZ Computer Assisted Procedure of Lower Extremity (ICD-10-PCS; 2020-09-14)
PROC: 8E0Y0CZ Robotic Assisted Procedure of Lower Extremity, Open Approach (ICD-10-PCS; 2020-09-14)
PROC: 0SRC0L9 Replacement of Right Knee Joint with Medial Unicondylar Synthetic Substitute, Cemented, Open Approach (ICD-10-PCS; principal; 2020-09-14 08:52)
DX: M17.11 Unilateral primary osteoarthritis, right knee (principal)
CPT/HCPCS: 20985; 27446; C1776; S2900; 73560-TC-RT-FY; 82962; 94760; 97010-GP; 97116-GP; 97162-GP

== ENCOUNTER 2022-03-25 12:59 | Inpatient (IN) | payer OTHER, BC ==
[2022-03-25] MEDS ORDERED: ACETAMINOPHEN 325 MG TABLET (FP) PO ONE (13:34)
[2022-03-25] MEDS ORDERED: ACETAMINOPHEN 325 MG TABLET (FP) ONE (13:37)
[2022-03-25 14:18] LABS: INR 1.39 (0.83-1.09)
[2022-03-25 14:28] LABS: HEMATOCRIT 40.1 % (35.4-49); HEMOGLOBIN 13.8 G/dL (11.7-16.9); MCHC 34.4 g/dl (32.0-35.9); PLATELET COUNT 146.7 10^3/uL (134-434); RBC 4.18 10^6/uL (4.00-5.60); RDW 14.9 % (11.9-15.9)
[2022-03-25 14:36] LABS: ALBUMIN 3.8 g/dl (3.4-5.0); BILIRUBIN,TOTAL 1.5 mg/dl (0.2-1); CALCIUM 9.5 mg/dl (8.5-10); CREATININE 1.8 mg/dl (0.55-1.3); TOT PROT 6.8 g/dl (6.4-8.2)
[2022-03-25 15:26] LABS: VENOUS BASE EXCESS -1.5 mmol/L (-2-2); VENOUS O2 SATURATION 82.7 % (70-80); VENOUS PCO2 38.3 mmHg (38-52); VENOUS PH 7.396 (7.310-7.410)
[2022-03-25 15:51] LABS: N-TERMINAL BNP 5551.3 pg/ml (5-450)
[2022-03-25] MEDS ORDERED: SODIUM CHLORIDE 500 ML IV STA (17:21)
[2022-03-25] MEDS ORDERED: APIXABAN 2.5 MG TABLET PO ONE (18:02)
[2022-03-25] MEDS ORDERED: POLYETHYLENE GLYCOL (HEALTHYLAX) 3350 17 GM PACKET PO PRN (19:39)
[2022-03-25] MEDS ORDERED: ZOLPIDEM TARTRATE 5 MG TABLET PO PRN (19:53)
[2022-03-25] MEDS: PANTOPRAZOLE 40 MG TABLET PO SCH (21:40)
[2022-03-25] MEDS: DUTASTERIDE 0.5 MG CAP (FP) PO SCH (21:40)
[2022-03-25] MEDS: ATORVASTATIN CA 40 MG TABLET (FP) PO SCH (21:40)
[2022-03-25] MEDS ORDERED: INSULIN SLIDING SCALE (NOVOLOG) 1 VIAL SQ SCH (22:00)
[2022-03-25] MEDS ORDERED: SACUBITRIL/VALSARTAN 24 MG-26 MG TABLET PO SCH (22:00)
[2022-03-25] MEDS ORDERED: HEPARIN NA (PORCINE) 5,000 UNITS/ML 1ML VIAL IVPUSH PRN ×3 (22:06→22:15)
[2022-03-25] MEDS: HEPARIN INFUSION - 25,000 UNITS/500 ML INFUS.BAG IVPB SCH (22:38)
[2022-03-25] MEDS: INSULIN SLIDING SCALE (NOVOLOG) 1 VIAL SQ SCH (22:40)
[2022-03-26] MEDS ORDERED: ACETAMINOPHEN 1000 MG/100 ML BAG IVPB ONE (00:51)
[2022-03-26] MEDS: INSULIN SLIDING SCALE (NOVOLOG) 1 VIAL SQ SCH ×4 (06:33→21:38)
[2022-03-26] MEDS: LEVOTHYROXINE NA 25 MCG TABLET (FP) PO SCH (06:34)
[2022-03-26 08:12] LABS: GLUCOSE,RANDOM 102 mg/dL (74-106)
[2022-03-26 08:13] LABS: CALCIUM 8.8 mg/dL (8.5-10.1); CHLORIDE 1099 mmol/L (98-107); CO2 22 mmol/L (21-32); CREATININE 1.4 mg/dL (0.55-1.3); SODIUM 139 mmol/L (136-145)
[2022-03-26 09:40] LABS: HEMATOCRIT 38.8 % (35.4-49); HEMOGLOBIN 13.4 G/dL (11.7-16.9); MCH 33.1 pg (25.7-33.7); MCHC 34.5 g/dl (32.0-35.9); MEAN CELL VOLUME 96.1 fl (80-96); MEAN PLT VOLUME 9.5 fl (7.5-11.1); PLATELET COUNT 115.1 10^3/uL (134-434); RBC 4.04 10^6/uL (4.00-5.60); WHITE BLOOD COUNT 7.1 10^3/uL (4.0-10.8)
[2022-03-26] MEDS: ALLOPURINOL 100 MG TABLET (FP) PO SCH (09:44)
[2022-03-26] MEDS: CHOLECALCIFEROL (VIT D3) 1,000 UNIT (25 MCG) TABLET PO SCH (09:45)
[2022-03-26 09:53] LABS: CREATININE 1.4 mg/dl (0.55-1.3)
[2022-03-26] MEDS ORDERED: SPIRONOLACTONE 25 MG TABLET PO SCH (10:00)
[2022-03-26] MEDS ORDERED: FUROSEMIDE 20 MG TABLET (FP) PO SCH (10:00)
[2022-03-26] MEDS ORDERED: SODIUM CHLORIDE 250 ML IV STA ×2 (10:10→13:29)
[2022-03-26] MEDS: HEPARIN INFUSION - 25,000 UNITS/500 ML INFUS.BAG IVPB SCH ×3 (10:30→23:00)
[2022-03-26] MEDS: ACETAMINOPHEN 325 MG TABLET (FP) PO PRN (18:58)
[2022-03-26] MEDS ORDERED: ALBUTEROL SO4 2.5/IPRATROPIUM 0.5 INH SOL 3 ML VIAL.NEB. NEB ONE (21:22)
[2022-03-26] MEDS: AMOXICILLIN 500 MG CAPSULE (FP) PO SCH (21:37)
[2022-03-26] MEDS: DUTASTERIDE 0.5 MG CAP (FP) PO SCH (21:37)
[2022-03-26] MEDS: PANTOPRAZOLE 40 MG TABLET PO SCH (21:37)
[2022-03-26] MEDS: ATORVASTATIN CA 40 MG TABLET (FP) PO SCH (21:37)
[2022-03-27] MEDS: ACETAMINOPHEN 325 MG TABLET (FP) PO PRN ×2 (01:15→22:01)
[2022-03-27] MEDS: AMOXICILLIN 500 MG CAPSULE (FP) PO SCH ×4 (05:47→21:43)
[2022-03-27] MEDS: LEVOTHYROXINE NA 25 MCG TABLET (FP) PO SCH (06:00)
[2022-03-27] MEDS: INSULIN SLIDING SCALE (NOVOLOG) 1 VIAL SQ SCH ×4 (06:00→22:02)
[2022-03-27 07:08] LABS: HEMATOCRIT 36.2 % (35.4-49); MCH 32.1 pg (25.7-33.7); MCHC 33.2 g/dl (32.0-35.9); MEAN CELL VOLUME 96.6 fl (80-96); MEAN PLT VOLUME 9.3 fl (7.5-11.1); PLATELET COUNT 110 10^3/uL (134-434); RBC 3.75 M/mm3 (4.00-5.60); RDW 14.4 % (11.9-15.9)
[2022-03-27] MEDS: HEPARIN INFUSION - 25,000 UNITS/500 ML INFUS.BAG IVPB SCH ×2 (07:22→23:23)
[2022-03-27 09:16] LABS: MAGNESIUM 2.2 mg/dL (1.8-2.4); PHOSPHOROUS 3.6 mg/dL (2.5-4.9)
[2022-03-27] MEDS: CHOLECALCIFEROL (VIT D3) 1,000 UNIT (25 MCG) TABLET PO SCH (09:35)
[2022-03-27] MEDS: ALLOPURINOL 100 MG TABLET (FP) PO SCH (09:35)
[2022-03-27 12:07] LABS: ALBUMIN 2.8 g/dl (3.4-5.0); BILIRUBIN,TOTAL 0.8 mg/dL (0.2-1); CALCIUM 8.6 mg/dL (8.5-10.1); CREATININE 1.2 mg/dL (0.55-1.3); TOT PROT 5.7 g/dl (6.4-8.2)
[2022-03-27 16:45] LABS: HEMATOCRIT 37.7 % (35.4-49); HEMOGLOBIN 12.4 GM/dL (11.7-16.9); MCH 31.5 pg (25.7-33.7); MCHC 32.8 g/dl (32.0-35.9); MEAN PLT VOLUME 8.9 fl (7.5-11.1); PLATELET COUNT 126 10^3/uL (134-434); RBC 3.93 M/mm3 (4.00-5.60); RDW 14.7 % (11.9-15.9); WHITE BLOOD COUNT 6.1 K/mm3 (4.0-10.0)
[2022-03-27 20:07] LABS: PH,URINE 5.5 (5.0-8.0); URINE APPEARANCE CLEAR; URINE BILIRUBIN NEGATIVE (NEGATIVE); URINE COLOR YELLOW; URINE GLUCOSE (UA) 3+ (NEGATIVE); URINE KETONE NEGATIVE (NEGATIVE); URINE LEUK ESTERASE NEGATIVE (NEGATIVE); URINE NITRITE NEGATIVE (NEGATIVE); URINE PROTEIN NEGATIVE (NEGATIVE); URINE UROBILINOGEN 0.2 mg/dL (0.2-1.0)
[2022-03-27] MEDS: PANTOPRAZOLE 40 MG TABLET PO SCH (21:42)
[2022-03-27] MEDS: ATORVASTATIN CA 40 MG TABLET (FP) PO SCH (21:43)
[2022-03-27] MEDS: DUTASTERIDE 0.5 MG CAP (FP) PO SCH (21:43)
[2022-03-28] MEDS: HEPARIN INFUSION - 25,000 UNITS/500 ML INFUS.BAG IVPB SCH (04:28)
[2022-03-28] MEDS: LEVOTHYROXINE NA 25 MCG TABLET (FP) PO SCH (06:01)
[2022-03-28] MEDS: AMOXICILLIN 500 MG CAPSULE (FP) PO SCH ×3 (06:01→21:14)
[2022-03-28] MEDS: INSULIN SLIDING SCALE (NOVOLOG) 1 VIAL SQ SCH ×4 (06:08→21:17)
[2022-03-28 07:49] LABS: HEMATOCRIT 36.2 % (35.4-49); MCH 31.9 pg (25.7-33.7); MCHC 33.2 g/dl (32.0-35.9); MEAN CELL VOLUME 96.3 fl (80-96); MEAN PLT VOLUME 9.7 fl (7.5-11.1); PLATELET COUNT 130 10^3/uL (134-434); RBC 3.76 M/mm3 (4.00-5.60); RDW 14.1 % (11.9-15.9); WHITE BLOOD COUNT 5.6 K/mm3 (4.0-10.0)
[2022-03-28] MEDS ORDERED: HEPARIN NA (PORCINE) 5,000 UNITS/ML 1ML VIAL IVPUSH PRN ×2 (07:56)
[2022-03-28] MEDS ORDERED: ZOLPIDEM TARTRATE 5 MG TABLET PO PRN (07:56)
[2022-03-28] MEDS ORDERED: HEPARIN INFUSION - 25,000 UNITS/500 ML INFUS.BAG IVPB SCH (07:56)
[2022-03-28] MEDS ORDERED: POLYETHYLENE GLYCOL (HEALTHYLAX) 3350 17 GM PACKET PO PRN (07:56)
[2022-03-28] MEDS: CHOLECALCIFEROL (VIT D3) 1,000 UNIT (25 MCG) TABLET PO SCH (09:26)
[2022-03-28] MEDS: ALLOPURINOL 100 MG TABLET (FP) PO SCH (09:27)
[2022-03-28] MEDS: PATIENT'S OWN MEDICATION (NON-FORMULARY) (Empagliflozin 25 MG Tablet) PO SCH ×2 (09:30→09:31)
[2022-03-28] MEDS ORDERED: EMPAGLIFLOZIN 25 MG PO SCH (10:00)
[2022-03-28 15:00] VITALS: BMI 34.4
[2022-03-28] MEDS: ACETAMINOPHEN 325 MG TABLET (FP) PO PRN (20:27)
[2022-03-28] MEDS: RIVAROXABAN 15 MG TABLET PO SCH (21:13)
[2022-03-28] MEDS ORDERED: PANTOPRAZOLE 40 MG TABLET PO SCH (22:00)
[2022-03-28] MEDS ORDERED: ATORVASTATIN CA 40 MG TABLET (FP) PO SCH (22:00)
[2022-03-28] MEDS ORDERED: BACLOFEN 10 MG TABLET (FP) PO SCH (22:00)
[2022-03-28] MEDS ORDERED: DUTASTERIDE 0.5 MG CAP (FP) PO SCH (22:00)
[2022-03-29] MEDS: ACETAMINOPHEN 325 MG TABLET (FP) PO PRN (01:59)
[2022-03-29] MEDS: AMOXICILLIN 500 MG CAPSULE (FP) PO SCH (05:47)
[2022-03-29] MEDS: INSULIN SLIDING SCALE (NOVOLOG) 1 VIAL SQ SCH ×2 (06:03→12:18)
[2022-03-29] MEDS ORDERED: LEVOTHYROXINE NA 25 MCG TABLET (FP) PO SCH (07:00)
[2022-03-29 07:11] LABS: HEMOGLOBIN 12.2 GM/dL (11.7-16.9); MCH 32.4 pg (25.7-33.7); MCHC 33.9 g/dl (32.0-35.9); MEAN CELL VOLUME 95.6 fl (80-96); MEAN PLT VOLUME 9.4 fl (7.5-11.1); PLATELET COUNT 133 10^3/uL (134-434); RBC 3.77 M/mm3 (4.00-5.60); RDW 14.2 % (11.9-15.9); WHITE BLOOD COUNT 5.4 K/mm3 (4.0-10.0)
[2022-03-29 07:23] LABS: BLOOD UREA NITROGEN 22.3 mg/dL (7-18); CALCIUM 8.9 mg/dL (8.5-10.1)
[2022-03-29 07:26] LABS: CREATININE 0.9 mg/dL (0.55-1.3)
[2022-03-29] MEDS: RIVAROXABAN 15 MG TABLET PO SCH (09:25)
[2022-03-29] MEDS: ALLOPURINOL 100 MG TABLET (FP) PO SCH (09:25)
[2022-03-29] MEDS: CHOLECALCIFEROL (VIT D3) 1,000 UNIT (25 MCG) TABLET PO SCH (09:25)
[2022-03-29] MEDS ORDERED: RIVAROXABAN 15 MG TABLET PO SCH (10:00)
[2022-03-29 14:02] VITALS: BP 104/56; PULSE 58; TEMP 98.7
== END 2022-03-29 15:45 | disposition home or self-care (01) | DRG 176 ==
LOC: FER 12:59 → FM/S 18:03 → JICU 03-26 16:00
PROVIDERS: ADMIT Internal Medicine; ATTEND Internal Medicine
DX: I26.99 Other pulmonary embolism without acute cor pulmonale (principal); N17.9 Acute kidney failure, unspecified; I50.32 Chronic diastolic (congestive) heart failure; I24.8 Other forms of acute ischemic heart disease; I13.0 Hypertensive heart and chronic kidney disease with heart failure and stage 1 through stage 4 chronic kidney disease, or unspecified chronic kidney disease; I48.0 Paroxysmal atrial fibrillation; I95.9 Hypotension, unspecified; E11.9 Type 2 diabetes mellitus without complications; N18.9 Chronic kidney disease, unspecified; E03.9 Hypothyroidism, unspecified; E78.5 Hyperlipidemia, unspecified; N40.0 Benign prostatic hyperplasia without lower urinary tract symptoms; I25.10 Atherosclerotic heart disease of native coronary artery without angina pectoris; E66.09 Other obesity due to excess calories; Z68.34 Body mass index [BMI] 34.0-34.9, adult
CPT/HCPCS: 36415; 71046-TC-FY; 71275-TC; 76705-TC; 76775-TC; 80048; 80053; 81003; 82550; 82803; 82962; 83735; 83880; 84100; 84443; 84484; 85025; 85027; 85379; 85610; 85730; 86022; 87086; 93005; 93306-TC; 93971-TC; 94640; 97116-GP; 97162-GP; 99285-25; C9803-CS; J0475; J1644; Q9967; U0003; U0005

== ENCOUNTER 2022-04-10 16:31 | Inpatient (IN) | payer OTHER, BC ==
[2022-04-10] MEDS ORDERED: SODIUM CHLORIDE 0.9% 500 ML INFUS.BAG IV ONE (17:35)
[2022-04-10] MEDS ORDERED: CEFTRIAXONE 1,000 MG in DEXTROSE 5%-WATER - 50 ML IVPB ONE (18:57)
[2022-04-10 19:12] LABS: EPI CELLS 5 /uL (0-25.1); HYALINE CASTS 4 /uL (0-3.1); URINE APPEARANCE TURBID; URINE BACTERIA 0 /uL (0-1359); URINE BILIRUBIN 1+ (NEGATIVE); URINE COLOR RED; URINE GLUCOSE (UA) 2+ (NEGATIVE); URINE KETONE NEGATIVE (NEGATIVE); URINE LEUK ESTERASE 1+ (NEGATIVE); URINE NITRITE NEGATIVE (NEGATIVE); URINE PROTEIN 2+ (NEGATIVE); URINE RBC 32481 /uL (0-23.9); URINE UROBILINOGEN 0.2 mg/dL (0.2-1.0); URINE WBC 83 /uL (0-25.8)
[2022-04-10] MEDS ORDERED: CEFTRIAXONE 1 GM/50 ML BAG ONE (19:20)
[2022-04-10 19:39] LABS: EOS % 4.3 % (0-4.5); HEMATOCRIT 35.9 % (35.4-49); HEMOGLOBIN 11.8 GM/dL (11.7-16.9); LYMPH % 20.8 % (8-40); MCH 31.6 pg (25.7-33.7); MCHC 32.8 g/dl (32.0-35.9); MEAN CELL VOLUME 96.3 fl (80-96); MEAN PLT VOLUME 8.3 fl (7.5-11.1); MONO % 6.5 % (3.8-10.2); NEUT % 67.4 % (42.8-82.8); PLATELET COUNT 237 10^3/uL (134-434); RBC 3.72 M/mm3 (4.00-5.60); RDW 15.3 % (11.9-15.9); WHITE BLOOD COUNT 7.9 K/mm3 (4.0-10.0)
[2022-04-10 19:47] LABS: INR 2.87 (0.83-1.09); PROTHROMBIN TIME (PATIENT) 33.4 SEC (9.7-13.0)
[2022-04-10 19:50] LABS: ACTIVATED PTT 43.9 SECONDS (25.2-36.5)
[2022-04-10 19:52] LABS: ALBUMIN 3.8 g/dl (3.4-5.0); BILIRUBIN,TOTAL 0.7 mg/dL (0.2-1); BLOOD UREA NITROGEN 44.3 mg/dL (7-18); CALCIUM 9.6 mg/dL (8.5-10.1); CREATININE 1.7 mg/dL (0.55-1.3); MAGNESIUM 2.4 mg/dL (1.8-2.4); TOT PROT 7.1 g/dl (6.4-8.2)
[2022-04-11] MEDS: SODIUM CHLORIDE 1,000 ML IV SCH ×3 (00:55→22:54)
[2022-04-11 01:13] VITALS: BMI 34.9
[2022-04-11] MEDS ORDERED: ZOLPIDEM TARTRATE 5 MG TABLET PO PRN (04:49)
[2022-04-11] MEDS ORDERED: NAPROXEN PO PRN (04:49)
[2022-04-11] MEDS: LEVOTHYROXINE NA 25 MCG TABLET (FP) PO SCH (06:29)
[2022-04-11] MEDS: INSULIN SLIDING SCALE (NOVOLOG) 1 VIAL SQ SCH ×4 (06:38→22:54)
[2022-04-11 06:51] LABS: BASO % 1.5 % (0-2.0); EOS % 5.7 % (0-4.5); HEMATOCRIT 30.9 % (35.4-49); HEMOGLOBIN 10.5 GM/dL (11.7-16.9); LYMPH % 30.2 % (8-40); MCH 32.6 pg (25.7-33.7); MCHC 33.8 g/dl (32.0-35.9); MEAN CELL VOLUME 96.5 fl (80-96); MEAN PLT VOLUME 8.5 fl (7.5-11.1); MONO % 7.7 % (3.8-10.2); NEUT % 54.9 % (42.8-82.8); PLATELET COUNT 180 10^3/uL (134-434); RBC 3.21 M/mm3 (4.00-5.60); RDW 15.2 % (11.9-15.9); WHITE BLOOD COUNT 5.4 K/mm3 (4.0-10.0)
[2022-04-11 07:12] LABS: CALCIUM 9.2 mg/dL (8.5-10.1)
[2022-04-11 07:13] LABS: BLOOD UREA NITROGEN 40.3 mg/dL (7-18)
[2022-04-11 07:16] LABS: CREATININE 1.4 mg/dL (0.55-1.3)
[2022-04-11] MEDS: CHOLECALCIFEROL (VIT D3) 1,000 UNIT (25 MCG) TABLET PO SCH (09:33)
[2022-04-11] MEDS: ALLOPURINOL 100 MG TABLET (FP) PO SCH (09:33)
[2022-04-11] MEDS: FAMOTIDINE 20 MG TABLET PO SCH (09:33)
[2022-04-11] MEDS ORDERED: SPIRONOLACTONE 25 MG TABLET PO SCH (10:00)
[2022-04-11] MEDS ORDERED: SACUBITRIL/VALSARTAN 24 MG-26 MG TABLET PO SCH (10:00)
[2022-04-11] MEDS ORDERED: FUROSEMIDE 20 MG TABLET (FP) PO SCH ×2 (10:00)
[2022-04-11] MEDS: ENOXAPARIN NA (PORCINE) 100 MG/1 ML DISP.SYRIN SQ SCH ×2 (12:21→21:49)
[2022-04-11] MEDS ORDERED: cefTRIAXone SODIUM 1 GM VIAL ONE (18:35)
[2022-04-11] MEDS ORDERED: DEXTROSE 5%-WATER - 50 ML IVPB ONE (18:35)
[2022-04-11] MEDS: CEFTRIAXONE 1 GM in DEXTROSE 5%-WATER - 50 ML IVPB SCH (18:36)
[2022-04-11 20:46] LABS: HEMATOCRIT 31.9 % (35.4-49); HEMOGLOBIN 10.5 GM/dL (11.7-16.9); MCH 31.7 pg (25.7-33.7); MCHC 32.9 g/dl (32.0-35.9); MEAN CELL VOLUME 96.3 fl (80-96); MEAN PLT VOLUME 8.8 fl (7.5-11.1); PLATELET COUNT 205 10^3/uL (134-434); RBC 3.31 M/mm3 (4.00-5.60); RDW 15.2 % (11.9-15.9); WHITE BLOOD COUNT 5.6 K/mm3 (4.0-10.0)
[2022-04-11 21:17] LABS: IRON SERUM 66 ug/dL (50-175); TOTAL IRON BINDING CAPACITY 238 ug/dL (250-450)
[2022-04-11] MEDS: OMEGA-3 ACID ETHYL ESTERS (FATTY-ACIDS) 1 GM CAPSULE (FP) PO SCH (21:48)
[2022-04-11] MEDS: BACLOFEN 10 MG TABLET (FP) PO SCH (21:48)
[2022-04-11] MEDS: ATORVASTATIN CA 40 MG TABLET (FP) PO SCH (21:48)
[2022-04-11] MEDS: PANTOPRAZOLE 40 MG TABLET PO SCH (21:48)
[2022-04-11] MEDS: NEBIVOLOL 10 MG TABLET (FP) PO SCH (21:50)
[2022-04-11] MEDS ORDERED: NEBIVOLOL 10 MG TABLET (FP) PO SCH (22:00)
[2022-04-11] MEDS: DUTASTERIDE 0.5 MG CAP (FP) PO SCH (22:53)
[2022-04-12] MEDS: ACETAMINOPHEN 325 MG TABLET (FP) PO PRN ×2 (00:15→20:22)
[2022-04-12] MEDS: LEVOTHYROXINE NA 25 MCG TABLET (FP) PO SCH (06:19)
[2022-04-12] MEDS: INSULIN SLIDING SCALE (NOVOLOG) 1 VIAL SQ SCH ×4 (06:21→22:42)
[2022-04-12 08:27] LABS: INR 1.3 (0.83-1.09)
[2022-04-12 08:30] LABS: ACTIVATED PTT 39.2 SECONDS (25.2-36.5)
[2022-04-12 08:37] LABS: BASO % 1.7 % (0-2.0); EOS % 5.5 % (0-4.5); HEMATOCRIT 32.3 % (35.4-49); HEMOGLOBIN 10.9 GM/dL (11.7-16.9); LYMPH % 36.8 % (8-40); MCH 32.3 pg (25.7-33.7); MCHC 33.7 g/dl (32.0-35.9); MEAN CELL VOLUME 95.8 fl (80-96); MEAN PLT VOLUME 8.8 fl (7.5-11.1); MONO % 6.9 % (3.8-10.2); NEUT % 49.1 % (42.8-82.8); PLATELET COUNT 191 10^3/uL (134-434); RBC 3.37 M/mm3 (4.00-5.60); WHITE BLOOD COUNT 5.7 K/mm3 (4.0-10.0)
[2022-04-12 08:46] LABS: ALBUMIN 3.5 g/dl (3.4-5.0); CALCIUM 9.1 mg/dL (8.5-10.1)
[2022-04-12 08:50] LABS: CREATININE 1.1 mg/dL (0.55-1.3)
[2022-04-12 08:51] LABS: TOT PROT 6.6 g/dl (6.4-8.2)
[2022-04-12] MEDS ORDERED: cefTRIAXone SODIUM 1 GM VIAL ONE (09:20)
[2022-04-12] MEDS: TAMSULOSIN HCL 0.4 MG CAP PO SCH (10:11)
[2022-04-12] MEDS: APIXABAN 5 MG TABLET PO SCH ×2 (10:11→22:43)
[2022-04-12] MEDS: CEFTRIAXONE 1 GM in DEXTROSE 5%-WATER - 50 ML IVPB SCH (10:12)
[2022-04-12] MEDS: ALLOPURINOL 100 MG TABLET (FP) PO SCH (10:12)
[2022-04-12] MEDS: FAMOTIDINE 20 MG TABLET PO SCH (10:12)
[2022-04-12] MEDS: CHOLECALCIFEROL (VIT D3) 1,000 UNIT (25 MCG) TABLET PO SCH (10:14)
[2022-04-12] MEDS: MIDODRINE HCL 5 MG TABLET PO SCH (17:55)
[2022-04-12] MEDS ORDERED: MIDODRINE HCL 2.5 MG TABLET PO SCH (18:00)
[2022-04-12] MEDS: ATORVASTATIN CA 40 MG TABLET (FP) PO SCH (22:43)
[2022-04-12] MEDS: OMEGA-3 ACID ETHYL ESTERS (FATTY-ACIDS) 1 GM CAPSULE (FP) PO SCH (22:43)
[2022-04-12] MEDS: NEBIVOLOL 10 MG TABLET (FP) PO SCH (22:43)
[2022-04-12] MEDS: DUTASTERIDE 0.5 MG CAP (FP) PO SCH (22:43)
[2022-04-12] MEDS: BACLOFEN 10 MG TABLET (FP) PO SCH (22:43)
[2022-04-12] MEDS: PANTOPRAZOLE 40 MG TABLET PO SCH (22:44)
[2022-04-13] MEDS: INSULIN SLIDING SCALE (NOVOLOG) 1 VIAL SQ SCH ×2 (06:09→12:04)
[2022-04-13] MEDS: LEVOTHYROXINE NA 25 MCG TABLET (FP) PO SCH (06:10)
[2022-04-13] MEDS ORDERED: cefTRIAXone SODIUM 1 GM VIAL ONE (09:25)
[2022-04-13] MEDS ORDERED: DEXTROSE 5%-WATER - 50 ML IVPB ONE (09:25)
[2022-04-13] MEDS: FAMOTIDINE 20 MG TABLET PO SCH (09:36)
[2022-04-13] MEDS: APIXABAN 5 MG TABLET PO SCH (09:36)
[2022-04-13] MEDS: ALLOPURINOL 100 MG TABLET (FP) PO SCH (09:36)
[2022-04-13] MEDS: CHOLECALCIFEROL (VIT D3) 1,000 UNIT (25 MCG) TABLET PO SCH (09:36)
[2022-04-13] MEDS: TAMSULOSIN HCL 0.4 MG CAP PO SCH (09:36)
[2022-04-13] MEDS: MIDODRINE HCL 5 MG TABLET PO SCH (09:36)
[2022-04-13] MEDS: CEFTRIAXONE 1 GM in DEXTROSE 5%-WATER - 50 ML IVPB SCH (09:37)
[2022-04-13 10:23] VITALS: BP 88/50; PULSE 68; TEMP 98.1
== END 2022-04-13 13:30 | disposition home or self-care (01) | DRG 695 ==
LOC: JER 16:31 → JERBED 22:32 → J4W 04-11 00:32
PROVIDERS: ADMIT Internal Medicine; ATTEND Family Medicine
DX: R31.0 Gross hematuria (principal); I26.99 Other pulmonary embolism without acute cor pulmonale; I48.19 Other persistent atrial fibrillation; I13.0 Hypertensive heart and chronic kidney disease with heart failure and stage 1 through stage 4 chronic kidney disease, or unspecified chronic kidney disease; I50.32 Chronic diastolic (congestive) heart failure; D68.32 Hemorrhagic disorder due to extrinsic circulating anticoagulants; I27.82 Chronic pulmonary embolism; I43 Cardiomyopathy in diseases classified elsewhere; N17.9 Acute kidney failure, unspecified; I25.10 Atherosclerotic heart disease of native coronary artery without angina pectoris; E78.5 Hyperlipidemia, unspecified; J45.909 Unspecified asthma, uncomplicated; N40.0 Benign prostatic hyperplasia without lower urinary tract symptoms; G47.33 Obstructive sleep apnea (adult) (pediatric); I95.9 Hypotension, unspecified; E11.22 Type 2 diabetes mellitus with diabetic chronic kidney disease; D64.9 Anemia, unspecified; N18.9 Chronic kidney disease, unspecified; Z95.5 Presence of coronary angioplasty implant and graft; Z95.0 Presence of cardiac pacemaker; Z96.651 Presence of right artificial knee joint
CPT/HCPCS: 0241U-QW; 36415; 71045-TC-FY; 76775-TC; 76856-TC; 80048; 80053; 81003; 82272; 82533; 82728; 82962; 83540; 83550; 83735; 84484; 85025; 85027; 85384; 85610; 85730; 86850; 86900; 86901; 87086; 93005; 93010; 99285-25; J0475